=== PATIENT | female | born 1985 | race African-American/Black ===

== ENCOUNTER 2021-07-22 01:04 | Emergency (ER) | payer OTHER ==
[2021-07-22 02:59] LABS: Urine Bacteria FEW /hpf (None Seen); Urine Blood 1+ /uL (Negative); Urine Mucus FEW (None Seen); Urine Specific Gravity 1.023 (1.001-1.035); Urine WBC 14 /hpf (0 - 5)
[2021-07-22 03:12] VITALS: BP 111/68
[2021-07-22] MEDS ORDERED: SULF400T11 PO (03:20)
[2021-07-22] MEDS ORDERED: KETOROLAC TROMETH 30 MG/ML 1ML VIAL IM ONE (03:30)
== END 2021-07-22 03:50 | disposition home or self-care (01) ==
LOC: ER 01:08
DX: N39.0 Urinary tract infection, site not specified (principal); K08.9 Disorder of teeth and supporting structures, unspecified
CPT/HCPCS: 81001; 81025; 96372; 99283; J1885